=== PATIENT | female | born 1995 | race Caucasian/White ===

== ENCOUNTER 2018-10-01 10:13 | Outpatient (CLI) | payer OTHER ==
--- NOTE | 2018-10-01 11:40 | ULT ---
ABDOMINAL ULTRASOUND: ULTRASOUND ABDOMEN COMPLETE HISTORY: Nausea. TECHNIQUE: Carty-scale ultrasound evaluation of the liver, gallbladder, spleen, pancreas, common bile duct, kidne ys, abdominal aorta, and inferior vena cava (IVC). FINDINGS: There is no focal hepatic lesion. There is a focus of increased echogenicity with shadowing seen at t he gallbladder neck region, indicative of cholelithiasis. No evidence of cholecystitis. Common duct i s normal measuring between 2-3 mm in diameter. No acute abnormality of the spleen or kidneys. No abdo anamika ascites. Intraabdominal contents otherwise grossly unremarkable by sonographic evaluation. IMPRESSION: Cholelithiasis without sonographic evidence of acute cholecystitis. POS: [facility]
== END 2018-10-01 10:14 | disposition home or self-care (01) ==
LOC: SCSULT 10:13
PROVIDERS: ATTEND Internal Medicine
DX: R11.2 Nausea with vomiting, unspecified (principal); K80.20 Calculus of gallbladder without cholecystitis without obstruction
CPT/HCPCS: 76700